=== PATIENT | female | born 1985 | race American Indian/Alaskan Native ===

== ENCOUNTER 2025-07-19 00:17 | Emergency (ER) | payer BC, SELFPAY ==
[2025-07-19 00:18] VITALS: BMI 30.4
[2025-07-19 00:25] VITALS: BP 129/82; PULSE 85; RESP 16; TEMP 36.8; O2SAT 98
[2025-07-19] MEDS: cefTRIAXone 2 GM in SODIUM CHLORIDE 0.9% (Popper) 50 ML IV (01:12)
[2025-07-19 01:31] VITALS: BP 109/62; PULSE 76; RESP 17; TEMP 36.7; O2SAT 98
--- NOTE | 2025-07-19 04:38 | PD.EDSKIN ---
ED Skin Abcess FB-RME/HPI General Chief complaint: Skin/Abscess/Foreign Body Stated complaint: CELLULITIS TO LEFT LOWER THIGH Time Seen by Provider: 07/19/25 00:21 Arrival date/time: 07/19/25 00:17 This is a case of 39-year-old female with no medical history came in in the emergency room due to painful lump on the left anterior thigh with redness patient noted that there is a lump 5 days prior to arrival in the emergency room which is painful swelling and redness due to worsening of the pain and the redness progressed to the whole anterior left thigh thus patient decided to sought consult here in the emergency room patient is Limitations: no limitations Related Data Previous Rx's ?Medication ?Instructions ?Recorded acetaminophen 325 mg capsule 975 mg (3 x 325 mg) PO Q6H PRN 01/04/20 pain #30 caps ibuprofen 800 mg tablet 800 mg PO TID PRN pain #30 tabs 01/04/20 cephalexin 500 mg capsule 500 mg PO QID #40 caps 07/19/25 Allergies Allergy/AdvReac Type Severity Reaction Status Date / Time No Known Allergies Allergy Verified 07/19/25 00:18 Review of Systems Review of Systems Systems Reviewed: All systems reviewed, normal except as documented Past Medical History Social History SMOKING STATUS: Never smoker ED Exam General Limitations: Present no limitations General appearance: Present alert, in no apparent distress and other (Patient is awake alert oriented not in distress nontoxic looking well-hydrated well nourished) Head Head exam: Present atraumatic Eye Eye exam: Present normal appearance, PERRL and EOMI ENT ENT exam: Present normal exam, normal oropharynx and mucous membranes moist Neck Neck exam: Present normal inspection, full ROM and trachea midline Chest Chest inspection: Present normal inspection and symmetric chest wall rise Respiratory Respiratory exam: Present normal lung sounds bilaterally; Absent respiratory distress, wheezes, stridor, accessory muscle use or prolonged expiratory phase Cardiovascular Cardiovascular exam: Present regular rate, normal rhythm and normal heart sounds; Absent bradycardia, tachycardia, irregular rhythm, systolic murmur or diastolic murmur Abdominal Exam Abdominal exam: Present soft and normal bowel sounds; Absent distention, tenderness, guarding, rebound, rigidity, diminished bowel sounds, hyperactive bowel sounds, hypoactive bowel sounds or organomegaly Extremities Exam Extremities exam: Present normal inspection and full ROM; Absent tenderness, normal capillary refill, pedal edema, joint swelling or calf tenderness Back Exam Back exam: Present normal inspection and full ROM; Absent tenderness, CVA tenderness (R), CVA tenderness (L), muscle spasm, paraspinal tenderness, vertebral tenderness, rashes, sciatic notch tenderness (R), sciatic notch tenderness (L) or straight leg raise (R) Neurological Exam Neurological exam: Present alert, oriented X3, CN II-XII intact, normal gait and reflexes normal; Absent motor sensory deficit Psychiatric Psychiatric exam: Present normal affect and normal mood Skin Skin exam: Present warm, dry, intact, normal color and other (Noted moderate tenderness on the left anterior thigh with 1 cm abscess lump tender and hard to touch no fluctuance nonindurated with surrounding cellulitis ROM intact neurovascular) Course Quality Measures none Orders Category Date Time Status cefTRIAXone [Rocephin] 1,000 mg Med 07/19/25 00:38 Discontinued Lidocaine 1% Pf Vial 5ml [Xylocaine 1% Pf 5 ml] 2.1 ml IM X1 cefTRIAXone [Rocephin] 2 gm Med 07/19/25 00:41 Discontinued SODIUM CHLORIDE 0.9% (Popper) [Ns 0.9% (P)] 50 ml IV X1 Vital Signs Vital signs: Vital Signs Temperature 98.2 F 07/19/25 00:25 Pulse Rate 85 07/19/25 00:25 Respiratory Rate 16 07/19/25 00:25 Blood Pressure 129/82 07/19/25 00:25 Pulse Oximetry (%) 98 07/19/25 00:25 Oxygen Delivery Method Room Air 07/19/25 00:25 Oxygen saturation is 98% in room air Skin / Abscess / Foreign Body MDM Narrative MDM Narrative:: This is a case of 39-year-old female with no medical history came in in the emergency room due to painful lump on the left anterior thigh with redness patient noted that there is a lump 5 days prior to arrival in the emergency room which is painful swelling and redness due to worsening of the pain and the redness progressed to the whole anterior left thigh thus patient decided to sought consult here in the emergency room patient is physical examination patient is awake alert oriented not in distress nontoxic looking well-hydrated well-nourished not noted moderate tenderness on the left anterior thigh with 1 cm abscess tender and hard to touch with cellulitis surrounding patient will be treated as abscess and cellulitis due to breast-feeding patient was given only ceftriaxone 2 g IV and was discharged with cephalexin she was advised to follow-up in 2 days for reevaluation and possible incision and drainage and evaluation of cellulitis patient agreed with the treatment plan and discharge Patient was discharged with comfortable condition walking with stable gait. Patient verbalized no further complains explained diagnosis and answered patient question. Patient is comfortable with the proposed management plan including the need to follow up with his/her primary care physician and any specialist if applicable Discussed patient for any urgent condition or worsening sx, He/She needed to go to emergency room immediately or call 911. Patient acknowledge the responsibility to follow up as instructed and to monitor her/his symptoms. For any persistence of the symptoms for more than 3-5 days return precaution advised. Discussed the result of the test and was given printed discharge instruction Patient data External records reviewed:: [facility] previous records Clinical information provided by:: patient Social determinants that could affect healthcare access:: none Patient has the following chronic illnesses:: None How is presenting disease/condition affected by chronic disease/condition?: no chronic disease Evaluation data The following diagnostics were reviewed and interpreted by me:: other (specify) (None) Lab and/or radiology exams considered but not ordered:: None Interpretation Summary: None Medications / Prescriptions Medications or Prescriptions considered but not ordered:: Given Medication administrations:: Medication Administration History Discontinued Medications Ceftriaxone Sodium 1,000 mg/ (Lidocaine HCl 2.1 ml) 0 mg IM X1 ONE Stop: 07/19/25 00:39 Last Admin: 07/19/25 00:43 Dose: Not Given Documented By: GEOVANNI Non-Admin Reason: Cancelled by Provider Ceftriaxone Sodium 2 gm/ (Sodium Chloride) 50 mls @ 100 mls/hr IV X1 ONE Stop: 07/19/25 01:10 Last Infusion: 07/19/25 01:48 Dose: Infused Documented By: Admin: 07/19/25 01:12 Dose: 100 mls/hr Documented By: GEOVANNI Given Consultations Consultation(s) initiated? (list below): No Diagnosis Skin/Abscess Differential Diagnosis: abscess of skin or subcutaneous tissue and cellulitis Most likely diagnosis given after review of the tests above:: Abscess with cellular Admission Indicated Admission indicated?: not indicated Explain why admission is indicated or not indicated:: Not in the indicated Admission Request Was there a request for admission?: No Admission Attestation Admission request attestation: Not indicated Disposition Plan Disposition Plan: Discharge Discharge Attestation Discharge Attestation: The patient and all family members were given an opportunity to ask questions and understood the discharge instructions. Discharge instructions specifically effects, indications for sooner follow up or return to the emergency department, and the expected course of current diagnosis. Patient condition: Stable Discharge Plan Plan Patient Disposition: HOME (Self Care) Patient condition on transfer: Stable Prescriptions/Referrals Prescriptions/Med Rec: New cephalexin 500 mg capsule 500 mg PO QID Qty: 40 0RF No Action ibuprofen 800 mg tablet 800 mg PO TID PRN (Reason: pain) Qty: 30 0RF acetaminophen 325 mg capsule 975 mg PO Q6H PRN (Reason: pain) Qty: 30 0RF Problem List Clinical Impression: Cellulitis, Abscess of left thigh Patient/Caregiver Discharge Instructions Education Materials: ED Abscess Antibiotic ..., ED Cellulitis Additional Instructions: It is very important to return in the emergency room in 2 days for reevaluation of abscess and possible incision and drainage and reevaluation of the cellulitis follow-up with PCP in 2 days for reevaluation worsening symptoms or any emergent concerns such as fever chills redness swelling discharge from the wound return to the emergency room immediately or call 911 take your medication as directed finish the course of antibiotic keep hydrated keep the wound clean and dry Print Language: Somali Stand Alone Forms: Allyson Award Info., Patient Portal Info Letter PA/STRAP FOLDING MACHINE OPERATOR Supervising Physician PA/STRAP FOLDING MACHINE OPERATOR Supervising Physician: Dr. Arevalo
== END 2025-07-19 01:50 | disposition home or self-care (01) ==
LOC: SERX 02:04
PROVIDERS: Emergency Provider Emergency Medicine; PCP Family Medicine
DX: L03.116 Cellulitis of left lower limb (principal); L02.416 Cutaneous abscess of left lower limb
CPT/HCPCS: 99282; J0696; J7050